=== PATIENT | male | born 1980 | race Caucasian/White ===

== ENCOUNTER 2016-11-27 23:40 | Emergency (ER) | payer SELFPAY ==
[~2016-11-27 23:40] MED LIST: CYCL10TA2 PO; HYDR-971 PO; NAPR500T3 PO
[2016-11-27 23:49] VITALS: BP 125/67
--- NOTE | 2016-11-28 00:35 | PHYS DOC ---
Past Medical History Past Medical History: Anxiety, Other Additional Past Medical Histor: DDD Past Surgical History: No Surgical History Alcohol Use: Occasionally Drug Use: Marijuana Adult General Chief Complaint Chief Complaint: RIB PAIN HPI HPI Patient is a 36 year old male presents emergency department stating that he has having right posterior rib pain. He states initially that it started when he was coughing. He then states that he was having increased pain after moving a pool table. Patient states he's had fractured ribs in the past. Patient also states that he's been having a productive cough that is yellow to greenish in color. He denies any fever, chills or any nausea vomiting. He does state he smokes cigarettes. Patient denies any shortness of air difficulty breathing. Patient denies taking anything for pain and discomfort. Review of Systems Review of Systems Constitutional: Denies fever or chills [] Eyes: Denies change in visual acuity, redness, or eye pain [] HENT: Denies nasal congestion or sore throat [] Respiratory: cough denies shortness of breath [] Cardiovascular: No additional information not addressed in HPI [] GI: Denies abdominal pain, nausea, vomiting, bloody stools or diarrhea [] : Denies dysuria or hematuria [] Musculoskeletal: Denies back pain or joint pain [] Integument: Denies rash or skin lesions [] Neurologic: Denies headache, focal weakness or sensory changes [] Current Medications Current Medications Current Medications Medications (Trade) Dose Ordered Sig/Sean Start Time Stop Time Status Last Admin Dose Admin Albuterol Sulfate (Ventolin Neb Soln) 2.5 mg 1X ONCE 11/28/16 01:00 11/28/16 01:01 DC 11/28/16 00:45 2.5 MG Allergies Allergies Allergies Coded Allergies Type Severity Reaction Last Updated Verified No Known Drug Allergies 07/24/15 No Physical Exam Physical Exam Constitutional: Well developed, well nourished, no acute distress, non-toxic appearance. [] HENT: Normocephalic, atraumatic, bilateral external ears normal, oropharynx moist, no oral exudates, nose normal. [] Eyes: PERRLA, EOMI, conjunctiva normal, no discharge. [] Neck: Normal range of motion, no tenderness, supple, no stridor. [] Cardiovascular:Heart rate regular rhythm, no murmur [] Lungs & Thorax: Bilateral breath sounds wheezes noted throughout area no crepitus or deformities noted to posterior ribs. No discoloration noted equal chest expansion noted Skin: Warm, dry, no erythema, no rash. [] Back: No tenderness Extremities: No tenderness, no cyanosis, no clubbing, ROM intact, no edema. [] Neurologic: Alert and oriented X 3, normal motor function, normal sensory function, no focal deficits noted. [] Psychologic: Affect normal, judgement normal, mood normal. [] Current Patient Data Vital Signs Vital Signs Date Time Temp Pulse Resp B/P Pulse Ox O2 Delivery O2 Flow Rate FiO2 11/28/16 00:47 98 11/27/16 23:49 98.4 72 16 Room Air 98.4 EKG EKG [] Radiology/Procedures Radiology/Procedures [] Course & Med Decision Making Course & Med Decision Making Pertinent Labs and Imaging studies reviewed. (See chart for details) Chest x-ray was negative for any bony abnormalities in the ribs per Dr. Khan. Patient was provided with respiratory treatment here in the emergency department in which his breath sounds are clear at this time. Patient will be discharged home with recommendations to stop smoking. He'll be provided with a perception for an albuterol inhaler. He was recommended to take Tylenol or ibuprofen for pain and discomfort. Also recommended warm moist packs to the chest wall area. Patient be discharged home in stable condition signs and symptoms to return back to emergency department as been provided. Patient agrees with discharge instructions treatment regimens and follow-up recommendations. [] Dragon Disclaimer Dragon Disclaimer This electronic medical record was generated, in whole or in part, using a voice recognition dictation system. Departure Departure Impression: Primary Impression: Rib pain on right side Additional Impression: Wheezes Disposition: HOME, SELF-CARE Condition: STABLE Referrals: NO PCP (PCP) Patient Instructions: Bronchitis, [id number], Rib Contusion, Smoking Cessation, Tips For Success Additional Instructions: Your rib x-rays were negative for any fractures or bony abnormalities. Medication as prescribed. Tylenol or ibuprofen for pain and discomfort. Warm moist packs to the chest wall area. Stop smoking. Follow-up to primary care physician next 3-5 days. Return back to emergency prior signs symptoms of become worse. Problem Qualifiers [address] [employer] Nov 28, 2016 00:35
[2016-11-28] MEDS ORDERED: ALBUTEROL SULFATE 2.5 MG/3 ML NEBU. NEB ONE (01:00)
[2016-11-28] MEDS ORDERED: PROAIR HFA8.5 GM INH (01:36)
--- NOTE | 2016-11-28 08:00 | RAD ---
3 view right rib detail series and PA view chest x-ray Clinical indications: Right rib pain after a fall. Comparison: None available. Findings: No acute right rib cage fracture is evident. No acute lung infiltrate or pleural effusion or pulmonary edema or pneumothorax is seen. IMPRESSION: No acute right rib fracture is seen.
== END 2016-11-28 01:35 | disposition home or self-care (01) ==
LOC: ER 23:40
DX: R07.81 Pleurodynia (principal); R06.2 Wheezing; R05 Cough; F41.9 Anxiety disorder, unspecified; F17.210 Nicotine dependence, cigarettes, uncomplicated; F12.10 Cannabis abuse, uncomplicated
CPT/HCPCS: 71101; 94640; 99284-25